=== PATIENT | male | born 1995 | race Caucasian/White ===

== ENCOUNTER 2022-01-29 19:57 | Emergency (ER) | payer OTHER ==
[~2022-01-29] VITALS: Ht 175.3 cm; Wt 68.0 kg
[2022-01-29] MEDS ORDERED: HYDROCODON-ACE1 EAC9 PO (22:18)
[2022-01-29 22:20] VITALS: BP 142/99
== END 2022-01-29 22:22 | disposition home or self-care (01) ==
LOC: ER 20:08
DX: S02.2XXA Fracture of nasal bones, initial encounter for closed fracture (principal); S00.211A Abrasion of right eyelid and periocular area, initial encounter; M54.2 Cervicalgia; V43.52XA Car driver injured in collision with other type car in traffic accident, initial encounter; Y92.488 Other paved roadways as the place of occurrence of the external cause
CPT/HCPCS: 70450; 70486; 72125; 99283